=== PATIENT | female | born 1980 | race Caucasian/White ===

== ENCOUNTER 2016-08-06 12:53 | Emergency (ER) | payer OTHER ==
[~2016-08-06] VITALS: Ht 165.1 cm; Wt 101.4 kg
[2016-08-06 12:56] VITALS: TEMP 36.7; Ht 165.1 cm; Wt 101.4 kg
[2016-08-06] MEDS ORDERED: ONDANSETRON INJ 2 MG/ML 2 ML VIAL IV STA (13:22)
[2016-08-06] MEDS ORDERED: SODIUM CHLORIDE 0.9% 1000ML 1,000 ML IV STA (13:22)
[2016-08-06] MEDS ORDERED: MoRPHine SULFATE 10 MG/ML CARP/VIAL IV PRN (13:30)
[2016-08-06 13:42] LABS: BASO % 0.2 %; BASO ABS # 0.02 K/uL (0-0.2); COMPLETE YES; EOS % 1.2 %; HEMATOCRIT 36.9 % (37-47); IG% 0.2 %; MEAN CELL VOLUME 89.3 fL (80-100); MEAN CORPUSCULAR HEMOGLOBIN 30.5 pg (25-34); MEAN CORPUSCULAR HGB CONC 34.1 g/dl (32-36); MONO % 8.9 %; NEUT % 61.5 %; PLATELET COUNT 208 K/uL (130-400); RED BLOOD COUNT 4.13 M/uL (4.2-5.4); WHITE BLOOD COUNT 8.56 K/uL (4.8-10.8)
--- NOTE | 2016-08-06 13:57 | EMERGENCY ROOM VISIT NOTE ---
ED Visit Note I was requested by Octaviano Rey PA-C to perform a pelvic exam on this patient. PELVIC: Vulva and vagina without lesion. A small amount of white milky discharge within the vaginal vault. Cultures were obtained. Cervix with a slight bluish hue. No erythema or lesions noted. Endocervical culture was obtained. Manual exam revealed uterus midline. Cervix without motion tenderness. Right adnexa with tenderness as compared to the left. No masses noted. Please see Octaviano Rey's note for the remainder of patient's physical exam.
[2016-08-06 14:01] LABS: ALT/SGPT 34 U/L (12-78); AST/SGOT 15 U/L (15-37); BLOOD UREA NITROGEN 12 mg/dl (7-18); BUN/CREATININE RATIO 20.3 (10-20); CARBON DIOXIDE 25 mmol/L (21-32); CHLORIDE 105 mmol/L (98-107); CREATININE 0.59 mg/dl (0.60-1.20); GLUCOSE 83 mg/dl (70-99); POTASSIUM 4.1 mmol/L (3.5-5.1); SODIUM 138 mmol/L (136-145)
[2016-08-06 14:03] LABS: ALKALINE PHOSPHATASE 84 U/L (45-117)
[2016-08-06 14:08] LABS: CALCIUM 8.7 mg/dl (8.5-10.1)
[2016-08-06 14:16] LABS: URINE APPEARANCE CLOUDY (CLEAR); URINE BILIRUBIN NEG (NEG); URINE COLOR YELLOW; URINE EPITHELIAL CELL AUTO >30 /lpf (0-5); URINE NITRITE NEG (NEG); URINE SPECIFIC GRAVITY 1.026 (1.000-1.030); UROBILINOGEN NEG (NEG)
[2016-08-06 14:17] LABS: PREG INTERNAL NEGATIVE QC NEG CLEAR BACKGROUND; PREG INTERNAL POSITIVE QC POS CONTROL LINE
[2016-08-06 14:21] LABS: MANUAL MICROSCOPIC REQUIRED? NO; REVIEW REQ? YES
--- NOTE | 2016-08-06 15:31 | DIAGNOSTIC IMAGING REPORT ---
EXAMINATION: PELVIC ULTRASOUND CLINICAL HISTORY: Bilateral lower lower quad abd pain PAIN COMPARISON STUDY: None FINDINGS: The uterus measured 2.3 cm. The endometrial stripe measured 9 mm. The right ovary measured 4.0 cm with normal vascular flow. The left ovary measured 4.5 cm with a complex 2 cm cyst. Normal vascular flow. There is no ultrasonographic evidence of ovarian torsion. It should be noted that ovarian torsion can be present with normal Doppler ultrasonographic findings. There was no evidence of pathologic free pelvic fluid. IMPRESSION: 2 cm complex left ovarian cyst. Normal ovarian vascular flow. Otherwise normal study Electronically signed by: Tom Mccurdy M.D. 08/06/2016 3:29 PM Dictated Date/Time: 08/06/2016 3:28 PM
[2016-08-06] MEDS ORDERED: OPTIRAY 320 IV PRN (15:45)
--- NOTE | 2016-08-06 16:19 | DIAGNOSTIC IMAGING REPORT ---
ABDOMEN AND PELVIS CT WITH IV AND ORAL CONTRAST CT DOSE: 1243.77 mGy.cm HISTORY: Generalized abdominal pain. TECHNIQUE: Multiaxial CT images of the abdomen and pelvis were performed following the use of intravenous and oral contrast. COMPARISON STUDY: Pelvic ultrasound 08/06/2016. FINDINGS: The lung bases are clear. No pneumoperitoneum. No pneumatosis. Mild hepatic steatosis. The gallbladder, spleen, right adrenal gland, pancreas, and kidneys are unremarkable. No retroperitoneal lymphadenopathy. The pelvic organs are within normal limits for age. No bowel wall thickening or obstruction. Normal appendix. A 12 mm indeterminate left adrenal gland nodule. IMPRESSION: 1. No bowel wall thickening or obstruction. 2. Normal appendix. 3. An indeterminate 12 mm left adrenal nodule. Electronically signed by: Chandler Cotton M.D. 08/06/2016 4:18 PM Dictated Date/Time: 08/06/2016 4:14 PM
[2016-08-06 17:06] VITALS: BP 115/72; PULSE 72; O2SAT 96
--- NOTE | 2016-08-07 01:06 | EMERGENCY ROOM VISIT NOTE ---
ED Visit Note First contact with patient: 13:02 Chief Complaint: Urinary symptoms. History of Present Illness: Ms. Tapia is a 36 year-old female who ambulates into the ED accompanied by female friend complaining of urinary symptoms and lower bilateral abdominal pain. It should be noted that patient does not speak Amharic and her friend is an official per diem interpreter Historically patient reports denies any previous significant gastrointestinal or [employer] surgery/diseases. Patient reports over the last 3 days she has noted increased urinary frequency, foul-smelling urine and darker appearing urine. This morning approximately 3 hours ago she reports she was going to the bathroom and developed an acute onset of bilateral lower quadrant pain. She describes a pain as a cramping sensation like her menstrual cycle. Since that time her pain has been constant and has been intermittently sharp. She currently rates her discomfort 6/10. She reports radiation of the pain around both sides of the abdomen and into the central portion of the upper lumbar back. Her pain slightly improves when she is lying flat on her back and increases when she is sitting up right. She has not taken any medications for pain prior to arrival at the hospital. She denies side prominence. Associated with her discomfort she reports last week and she had 1 episode of painful intercourse. Patient denies fevers, chills, sweats, skin eruptions, skin color changes, upper respiratory tract symptoms, shortness of breath, chest pain, nausea, vomiting, diarrhea, constipation, rectal bleeding, black/tarry stools, urinary burning, hematuria, vaginal bleeding, vaginal discharge. Review of Systems: As noted above in history of present illness. All body systems were reviewed and found to be negative as noted above. Past Medical History: Tubal ligation. Current Medications: Patient denies. Allergies to Medications: Patient denies. Social History: Patient is currently employed; she feels safe in her home environment; she denies tobacco and alcohol use. Physical Examination: Vital Signs: Date Time Temp Pulse Resp B/P (MAP) Pulse Ox O2 Delivery O2 Flow Rate FiO2 08/06/16 17:06 72 16 115/72 96 Room Air 08/06/16 15:37 80 16 121/74 98 Room Air 08/06/16 14:05 74 08/06/16 12:56 36.7 72 20 124/81 97 Room Air GENERAL: 36-year-old female in mild to moderate distress due to pain, nontoxic- appearing, afebrile and hemodynamically stable. NEUROLOGICAL: Awake, alert and oriented to person, place and time. Answering questions appropriately and following commands. Normal gait. Good hand eye coordination. SKIN: Warm, dry and pink. No soft tissue eruptions or trauma noted. HEENT: Atraumatic and normocephalic. PERRLA. Sclera white and conjunctiva pink. Oral cavity moist and pink. Pharynx is nonerythematous or edematous. Speech normal. No lymphadenopathy. Trachea midline. No jugular venous distention. BACK: No tenderness over the bony spine. No CVA tenderness. THORAX: Lungs sounds are clear to auscultation and equal bilaterally with symmetrical chest wall. No wheezing, rales or rhonchi. No crepitus, tenderness , subcutaneous air or deformities noted. HEART: Regular rate and rhythm. No gallops, rubs or murmurs are appreciated. ABDOMEN: Flat, soft and nontender. Positive bowel sounds in all quadrants. No guarding, rigidity or organomegaly. PELVIC: Performed by Ms. Fernando Mccurdy PA-C. She reported her examination was unremarkable except for a mild blue tinged cervix. EXTREMITIES: Moves all extremities well on command and with purpose. All distal neurovascular statuses are intact and equal bilaterally. ED Course: Patient is assessed as noted above. Laboratory Testing: Test 08/06/16 13:08 08/06/16 13:35 08/06/16 13:50 08/06/16 13:55 Range/Units Urine Color YELLOW Urine Appearance CLOUDY CLEAR Urine pH 5.0 4.5-7.5 Urine Specific [place] 1.026 1.000-1.030 Urine Protein NEG NEG Urine Glucose (UA) NEG NEG Urine Ketones NEG NEG Urine Occult Blood NEG NEG Urine Nitrite NEG NEG Urine Bilirubin NEG NEG Urine Urobilinogen NEG NEG Urine Leukocyte Esterase MODERATE NEG Urine WBC (Auto) 5-10 0-5 /hpf Urine RBC (Auto) 0-4 0-4 /hpf Urine Hyaline Casts (Auto) 5-10 0-5 /lpf Urine Epithelial Cells (Auto) >30 0-5 /lpf Urine Bacteria (Auto) 1+ NEG Urine Crystals CALCIUM OXALATE NONE PRSENT White Blood Count 8.56 4.8-10.8 K/uL Red Blood Count 4.13 4.2-5.4 M/uL Hemoglobin 12.6 12.0-16.0 g/dL Hematocrit 36.9 37-47 % Mean Corpuscular Volume 89.3 80-100 fL Mean Corpuscular Hemoglobin 30.5 25-34 pg Mean Corpuscular Hemoglobin Concent 34.1 32-36 g/dl Platelet Count 208 130-400 K/uL Mean Platelet Volume 11.0 7.4-10.4 fL Neutrophils (%) (Auto) 61.5 % Lymphocytes (%) (Auto) 28.0 % Monocytes (%) (Auto) 8.9 % Eosinophils (%) (Auto) 1.2 % Basophils (%) (Auto) 0.2 % Neutrophils # (Auto) 5.26 1.4-6.5 K/uL Lymphocytes # (Auto) 2.40 1.2-3.4 K/uL Monocytes # (Auto) 0.76 0.11-0.59 K/uL Eosinophils # (Auto) 0.10 0-0.5 K/uL Basophils # (Auto) 0.02 0-0.2 K/uL RDW Standard Deviation 44.7 36.4-46.3 fL RDW Coefficient of Variation 13.7 11.5-14.5 % Immature Granulocyte % (Auto) 0.2 % Immature Granulocyte # (Auto) 0.02 0.00-0.02 K/uL Sodium Level 138 136-145 mmol/L Potassium Level 4.1 3.5-5.1 mmol/L Chloride Level 105 98-107 mmol/L Carbon Dioxide Level 25 21-32 mmol/L Anion Gap 8.0 3-11 mmol/L Blood Urea Nitrogen 12 7-18 mg/dl Creatinine 0.59 0.60-1.20 mg/dl Est Creatinine Clear Calc Drug Dose 157.1 ml/min Estimated GFR () 137.6 Estimated GFR (Non- 118.7 BUN/Creatinine Ratio 20.3 10-20 Random Glucose 83 70-99 mg/dl Calcium Level 8.7 8.5-10.1 mg/dl Total Bilirubin 0.3 0.2-1 mg/dl Direct Bilirubin < 0.1 0-0.2 mg/dl Aspartate Amino Transf (AST/SGOT) 15 15-37 U/L Alanine Aminotransferase (ALT/SGPT) 34 12-78 U/L Alkaline Phosphatase 84 45-117 U/L Total Protein 7.5 6.4-8.2 gm/dl Albumin 3.5 3.4-5.0 gm/dl Lipase 113 73-393 U/L Human Chorionic Gonadotropin, Qual NEG NEG Trichomonas Preparation: Negative. Gram Stain: Pending. Genital Culture: Pending. Urine Culture: Pending. Pelvic Ultrasound: Was reviewed by myself and read by the radiologist showing a normal-appearing uterus, endometrial stripe, right ovary with normal vascular flow, left ovary has a complex 2 cm cyst with normal vascular flow, no evidence of ovarian torsion, no evidence of pathological free fluid. Contrast Abdominal/Pelvic CT: Was reviewed by myself and read by the radiologist and shows clear lung bases, no pneumoperitoneum, no pneumatosis, mild hepatic steatosis, unremarkable gallbladder, spleen, right adrenal gland, pancreas and kidneys, no retroperitoneal lymphadenopathy, normal-appearing pelvic organs within normal limits for age, no bowel wall thickening or obstruction, normal-appearing appendix, 12 mm indeterminate left adrenal gland nodule. Patient was hydrated with normal saline and she received 4 mg of morphine IV and 4 mg of Zofran IV for her symptoms. Patient was reassessed multiple times during her stay in the emergency department. Patient's case was reviewed with Dr. Farrar; we agreed on diagnostic approach , treatment, disposition and plan. Patient was educated about today's findings and instructed on her treatment plan ; she verbalizes understanding and agreement with this plan. Clinical Impression: Bilateral lower abdominal pain. Urinary symptoms. Left ovarian cyst by ultrasound. Left adrenal nodule on CAT scan. Decision-Making: Initially my differential diagnosis I considered ovarian torsion, ovarian cyst rupture, ectopic , PID, appendicitis, urinary tract infection, kidney stone, and other causes. Disposition: Patient discharged home in stable condition accompanied by female friends; prior to departure she was reassessed and subjectively reported she was feeling much better and rated her discomfort 2/10. Plan: Patient was encouraged to use ibuprofen or acetaminophen as needed for pain. Patient was encouraged to stay well-hydrated. Patient was encouraged to follow-up with her [employer] provider for recheck if no better in 2-3 days. Patient was encouraged return the ED for worsening pain, fevers, vomiting, vaginal bleeding, vaginal discharge, worsening urinary symptoms or any new/ concerning symptoms.
--- NOTE | 2016-08-07 16:35 | Pharmacy Progress Note ---
ED Pharmacist Culture FollowUp Date of Service: Aug 07, 2016. Urine culture with probable skin rob (final result). Genital culture with moderate normal rob (preliminary result). No intervention required at this time. Case discussed with Dr. Tillman.
[2016-08-09 03:10] LABS: CHLAMYDIA TRACH RNA*** NOT DETECTED (NOT DETECTED); GC (NEIS GONORRHOEAE)RNA** NOT DETECTED (NOT DETECTED)
== END 2016-08-06 17:18 | disposition home or self-care (01) ==
LOC: C.EDB 12:55 → C.EDA 17:18
DX: R10.30 Lower abdominal pain, unspecified (principal); N39.9 Disorder of urinary system, unspecified; N83.202 Unspecified ovarian cyst, left side; E27.9 Disorder of adrenal gland, unspecified

== ENCOUNTER 2017-02-07 19:40 | Emergency (ER) | payer OTHER ==
[~2017-02-07] VITALS: Ht 165.1 cm; Wt 103.0 kg
[2017-02-07 19:44] VITALS: TEMP 36.7; Ht 165.1 cm; Wt 103.0 kg
[2017-02-07] MEDS ORDERED: NEOMYCIN/POLYMYX/HYDROCORT OT SOLN 10 ML BTL OT ONE (20:00)
[2017-02-07] MEDS ORDERED: AMOX875T PO (20:00)
[2017-02-07] MEDS ORDERED: NORCO 5/325MG HOME PACK PO ONE (20:00)
[2017-02-07] MEDS ORDERED: AMOXICIL/CLAVU 875MG HOME PACK PO ONE (20:00)
[2017-02-07 20:13] VITALS: BP 133/81; PULSE 95; O2SAT 98
--- NOTE | 2017-02-07 22:17 | EMERGENCY ROOM VISIT NOTE ---
History First contact with patient: 19:46 Chief Complaint: EAR PAIN Stated Complaint: FACE AND EAR PAIN LEFT SIDE History of Present Illness The patient is a 36 year old female who presents to the Emergency Room with complaints of left ear pain for the past week. Readily the patient had an episode where she had drainage coming from the ear which did improve. She states that she had another episode of this yesterday. She has worsening pain today. The patient has not had fever or chills. She has had URI symptoms. No coughing or difficulty breathing. She considers herself usually healthy and rates her discomfort a 5/10. Review of Systems More than 10 systems were reviewed and otherwise negative with the exception of history of present illness. Past Medical/Surgical History Medical Problems: (1) Gestational diabetes Family History No significant family history Social History Smoking Status: Never Smoker Marital Status: Housing Status: lives with family Occupation Status: employed Current/Historical Medications Scheduled Amoxicillin & Pot Clavulanate (Augmentin 875-125 mg), 1 TAB PO BID Physical Exam Vital Signs Date Time Temp Pulse Resp B/P (MAP) Pulse Ox O2 Delivery O2 Flow Rate FiO2 02/07/17 20:13 95 18 133/81 98 02/07/17 19:44 36.7 99 18 135/87 98 Room Air Physical Exam VITALS: Vitals are noted on the nurse's note and reviewed by myself. Vital signs stable. GENERAL: Well-developed, well-nourished, female, who is in no acute distress and resting comfortably. Patient is cooperative with the examination. HEAD: Normocephalic atraumatic. EARS: Right external ear and canal normal with normal right TM. The left tragus is tender. There appears to be mild edema of the superior aspect of the canal that partially obscures the TM. The visualized TM appears bulging. No mastoid tenderness. EYES: Pupils equal round and reactive to light and accommodation. Conjunctivae without injection, sclerae without icterus. Extraocular movements intact. NOSE: Patent, turbinates without inflammation or discharge. MOUTH: Mucous membranes moist. Tonsils are not enlarged. Pharynx without erythema, blood, or exudate. Uvula midline. Airway patent. NECK: Supple without nuchal rigidity. No lymphadenopathy. No thyromegaly. Cervical spine is nontender. HEART: Regular rate and rhythm without murmurs gallops or rubs. LUNGS: Clear to auscultation bilaterally without wheezes, rales or rhonchi. No retractions or accessory muscle use. Medical Decision & Procedures Medications Administered Medications (Trade) Dose Ordered Sig/Luis Route Start Time Stop Time Status Last Admin Dose Admin Amoxicillin/ Clavulanate Potassium (Augmentin 875MG Home Pack) 1 homepack UD ONCE PO 02/07/17 20:00 02/07/17 20:01 DC 02/07/17 20:16 1 HOMEPACK Acetaminophen/ Hydrocodone Bitart ([place] 5/325mg Home Pack) 1 homepack UD ONCE PO 02/07/17 20:00 02/07/17 20:01 DC 02/07/17 20:16 1 HOMEPACK Neomycin/ Polymyxin/ Hydrocortisone (Cortisporin Otic Soln) 3 drops NOW ONCE OT 02/07/17 20:00 02/07/17 20:01 DC 02/07/17 20:16 3 DROPS ED Course Physical exam and history were performed. Nursing notes, EMR, and Medication List were personally reviewed. Patient appears to have left ear pain for the past several days. On examination she appears to have a left otitis externa that is partially obscuring her TM. I also suspect that she has a left otitis media, which may have ruptured earlier in the week. She overall appears well and will be treated with Augmentin and Cortisporin otic. The patient will be given a home pack of pain medication and instructions to follow with primary care physician for further management. She was otherwise invited back to the ER with any new, worsening, or concerning symptoms. The chart was completed utilizing [employer] Speech Voice Recognition Software. Grammatical errors, random word insertions, pronoun errors, and incomplete sentences are an occasional consequence of this system due to software limitations, ambient noise, and hardware issues. Any formal questions or concerns about the content, text, or information contained within the body of this dictation should be directly addressed to the provider for clarification. . Medical Decision Differential diagnosis: Etiologies such as viral syndrome, otitis, pharyngitis, pneumonia, influenza, meningitis, urinary tract infection, sepsis, bacteremia, as well as others were entertained. Impression Primary Impression: Left otitis media Additional Impression: Left otitis externa Departure Information Dispostion Home / Self-Care Condition GOOD Prescriptions Amoxicillin & Pot Clavulanate (Augmentin 875-125 mg) 1 Tab Tab 1 TAB PO BID for 9 Days, #18 TAB Prov: Matthieu Jarrell PA-C 02/07/17 Forms HOME CARE DOCUMENTATION FORM, IMPORTANT VISIT INFORMATION Patient Instructions My [facility] Additional Instructions You were seen and evaluated today on an emergency basis only. This is not a substitute for, or an effort to provide, complete comprehensive medical care. It is not possible to recognize and treat all injuries or illnesses in a single emergency department visit. For this reason it is recommended that you followup with your primary care physician next week for a recheck of your condition. For baseline pain relief you may alternate ibuprofen and acetaminophen every 4 hours for pain control. Take 600 mg ibuprofen (Advil) and then 4 hours later take 1000 mg acetaminophen (Tylenol). Do not take more than 3000 mg acetaminophen in a single day. [place] (hydrocodone/acetaminophen) 5/325 mg every 6 hours as needed for worsening breakthrough pain. Do not drink or drive on [place]. This medication will likely make you tired. Do not take [place] and Tylenol at the same time as both contain acetaminophen. [place] may cause constipation. You may wish to take an [id number] stool softener like Colace if this occurs. Use Cortisporin otic eardrops. 4 drops to the left ear 3-4 times daily Amoxicillin Clavulanate (Augmentin) 875mg: Take one pill twice daily for 10 total days for your infection. All antibiotics can cause diarrhea. If this occurs and you feel worse or it does not resolve in 1-2 days follow up with your doctor or return to the Emergency Department as this could be signs of serious underlying problems. Any medication can cause an allergic reaction, stop the pills immediately and return to the ER for rash, hives, breathing difficulties, or swelling. You are welcome to return to the emergency department anytime with new, worsening, or concerning symptoms. Fuiste visto y evaluado hoy solo en gaetano de emergencia. [place] no es un sustituto o un esfuerzo para proporcionar, completar la atencin mdica integral. No es posible reconocer y tratar todas las lesiones o enfermedades en kerline juan visita al departamento de emergencia. Por esta razn, se recomienda que azael un seguimiento con yao mdico de atencin primaria la prxima semana para kerline revisi n de yao condicin. Para el alivio inicial del dolor, puede alternar ibuprofeno y acetaminofn cada 4 horas para controlar el dolor. [place] 600 mg de ibuprofeno (Advil) y luego 4 horas despus tome 1000 mg de acetaminofeno (Tylenol). No tome ms de 3000 mg de paracetamol en un solo da. [place] ([place] / acetaminofn) 5/325 mg cada 6 horas segn sea necesario para empeorar el dolor irruptivo. No danii ni conduzca en [place]. Lorna medicamento probablemente lo harika sentir cansado. No tome [place] y Tylenol al mismo tiempo ya que ambos contienen acetaminofeno. [place] puede causar estre imiento. Es posible que desee janette un ablandador de heces de venta marielos syd Colace si esto ocurre. Use gotas lala de cortisporina. 4 gotas en la oreja izquierda 3-4 veces al da Amoxicilina clavulnico (Augmentin) 875mg: tome kerline pldora dos veces al da parth 10 jaffe en total para yao infeccin. Todos los antibiticos pueden causar diarrea. Si esto ocurre y usted se siente peor o no se resuelve en 1 o 2 jaffe, azael un seguimiento con yao mdico o regrese al servicio de urgencias ya que esto podra ser un signo de problemas subyacentes graves. Cualquier medicamento puede causar kerline reaccin alrgica, suspender las pldoras de inmediato y regresar a la giovanni de emergencias por sarpullido, urticaria, dificultad para respirar o hinchazn. Puede volver al servicio de urgencias en cualquier momento con sntomas nuevos, que empeoren o que afecten a los sntomas. Problem Qualifiers
== END 2017-02-07 20:13 | disposition home or self-care (01) ==
LOC: C.EDB 19:41 → C.EDD 20:13
DX: H66.92 Otitis media, unspecified, left ear (principal); H60.92 Unspecified otitis externa, left ear